=== PATIENT | male | born 1990 | race Caucasian/White ===

== ENCOUNTER 2018-01-12 18:05 | Emergency (ER) | payer OTHER ==
[2018-01-12 18:13] VITALS: BP 141/81; PULSE 81; RESP 18; TEMP 98.4
[2018-01-12] MEDS ORDERED: DIPH,PERTUS(ACELL)TETVAC-LF 0.5 ML VIAL IM ONE (18:19)
[2018-01-12] MEDS ORDERED: TOPICAL SKIN ADHESIVE 1 EACH AMP TOPICAL ONE (18:27)
--- NOTE | 2018-01-12 18:30 | ED ---
Eye Problem HPI - General Chief complaint: Eye Problems Stated complaint: [employer]-Met[employer] in Eye Time Seen by Provider: 01/12/18 18:15 Source: patient, RN notes reviewed Mode of arrival: ambulatory Limitations: no limitations - History of Present Illness Initial comments: This is a 27-year-old male who presents to the emergency department with chief complaint of left eye injury. Patient states that at approximately 4:30 this afternoon he was at work. He states he was using a drill and the metal drillbit flew out and hit him in the left eyelid. Patient denies any pain to the eye itself. He denies blurred vision, changes in vision or pain with movement of the eye. Denies any foreign body sensation. He states he is having difficulty opening his eyelid due to the swelling. He states he does not like to open his eye because when he does so the laceration on his eyelid begins to bleed even more. He denies any other injuries or trauma. States he believes he is due for an updated tetanus vaccination. Denies fever, chills, chest pain, shortness of breath, abdominal pain, nausea or vomiting, constipation or diarrhea, dysuria or hematuria, numbness or tingling, headache or vision changes. - Related Data Allergies Allergy/AdvReac Type Severity Reaction Status Date / Time loratadine [From Claritin] AdvReac Unknown Verified 01/12/18 18:14 Review of Systems ROS Statement: Those systems with pertinent positive or pertinent negative responses have been documented in the HPI. ROS Other: All systems not noted in ROS Statement are negative. Past Medical History Past Medical History: Asthma History of Any Multi-Drug Resistant Organisms: None Reported Past Surgical History: Ear Surgery, Orthopedic Surgery Past Psychological History: No Psychological Hx Reported Smoking Status: Never smoker Past Alcohol Use History: None Reported Past Drug Use History: None Reported General Exam - General Exam Comments Initial Comments: General: Awake and alert, well-developed; in no apparent distress. HEENT: Head atraumatic, normocephalic. Pupils are equal, round and reactive to light. Extraocular movements intact. Left conjunctiva is noninjected. No evidence for foreign body. Oropharynx moist without erythema or exudate. Left eye lid is swollen and ecchymotic. There is a small superficial laceration, approximately 0.25cm, medial aspect of the left eyelid. Neck: Supple. Normal ROM. Cardiovascular: Regular rate and rhythm. No murmurs, rubs or gallops. Chest symmetrical. Respiratory: Lungs clear to auscultation bilaterally. No wheezes, rales or rhonchi. Normal respiratory effort with no use of accessory muscles. Musculoskeletal: Normal ROM, no tenderness bilateral upper and lower extremities. Ambulating normally. Skin: [place], warm and dry without rashes or lesions. Neurological: Alert and oriented x3. CN II-XII grossly intact. Speech is fluent and answers are appropriate. No focal neuro deficits. Psychiatric: Normal mood and affect. No overt signs of depression or anxiety noted. Limitations: no limitations Course Vital Signs 01/12/18 18:11 Temperature 98.4 F Pulse Rate 81 Respiratory 18 Rate Blood Pressure 141/81 O2 Sat by Pulse 99 Oximetry Medical Decision Making - Medical Decision Making This is a 27-year-old male who presents to the emergency department with chief complaint of left eye injury. Patient was hit in the left eyelid by a drill bit while at work this evening. He denies any eye pain or vision changes. On physical examination, the conjunctiva is non-injected. Extraocular movements are intact. Left upper eyelid is swollen and ecchymotic. There is a small approximately 0.25 cm laceration medial left eyelid. X-ray of the orbits was obtained and revealed no acute abnormalities. No evidence for orbital fractures or globe rupture. The wound was cleansed and irrigated and Dermabond was applied. Patient tolerated well without any complication. Return parameters were discussed and recommended ophthalmology follow-up. Recommended ice and ibuprofen as needed. Patient is in no acute distress and will be discharged home at this time. He is in agreement with plan and voices understanding. All questions were answered. - Radiology Data Radiology results: report reviewed, image reviewed X-ray bilateral orbits findings: There is no fracture or malalignment. The soft tissues are unremarkable. No radiopaque foreign bodies. Impression: No acute process. Disposition Clinical Impression: Periorbital hematoma of left eye, Eyelid laceration Disposition: HOME SELF-CARE Condition: Good Instructions: Black Eye (ED), Facial Laceration (ED) Additional Instructions: Please return to the emergency department if you develop any eye pain or changes in vision. Please follow up with Dr. Gil, ophthalmology. Please apply ice and take ibuprofen or Tylenol as needed. Please follow up with primary care provider within 1-2 days. Return to emergency department if symptoms should worsen or any concerns arise. Is patient prescribed a controlled substance at d/c from ED?: No Referrals: None,Stated [Primary Care Provider] - 1-2 days Mary Gil MD [STAFF PHYSICIAN] - 1-2 days Time of Disposition: 19:02
--- NOTE | 2018-01-12 19:00 | XR ---
PROCEDURE: XR orbit complete bilateral, 3 views DATE AND TIME: 01/12/2018 6:32 PM REFERRING PHYSICIAN: Zully Willis CLINICAL INDICATION: PHH, laceration r/o fb TECHNIQUE: Department protocol. COMPARISON: None FINDINGS: There is no fracture or malalignment. The soft tissues are unremarkable. No radiopaque fore ign bodies. IMPRESSION: NO ACUTE PROCESS.
== END 2018-01-12 19:10 | disposition home or self-care (01) ==
LOC: EC 18:05
DX: S01.112A Laceration without foreign body of left eyelid and periocular area, initial encounter (principal); S05.12XA Contusion of eyeball and orbital tissues, left eye, initial encounter; Z23 Encounter for immunization; Z88.8 Allergy status to other drugs, medicaments and biological substances; W22.8XXA Striking against or struck by other objects, initial encounter; Y99.0 Civilian activity done for income or pay
CPT/HCPCS: 12011; 70200; 90471; 90715; 99283